=== PATIENT | female | born 1940 | race Hispanic/Latino ===

== ENCOUNTER 2017-03-21 06:55 | Day surgery (SDC) | payer MEDICARE, BC ==
[2017-03-12 08:26] VITALS: BMI 43.0
[2017-03-21] MEDS ORDERED: Propofol 10 mg/ml Inj (20 ML) ONE ×2 (09:05→09:52)
[2017-03-21] MEDS ORDERED: Methylene Blue 10 mg/ml (1ml) Inj ONE (09:30)
[2017-03-21] MEDS ORDERED: Lactated Ringer's 1,000 ML IV SCH (10:04)
[2017-03-21 10:58] VITALS: BP 132/71; RESP 16; TEMP 97.7
[2017-03-21 10:59] VITALS: PULSE 60; O2SAT 100
== END 2017-03-21 11:30 | disposition home or self-care (01) ==
LOC: ENDO 06:55
PROVIDERS: ATTEND Internal Medicine Gastroenterology
DX: D12.3 Benign neoplasm of transverse colon (principal); K57.30 Diverticulosis of large intestine without perforation or abscess without bleeding; K64.8 Other hemorrhoids; J44.9 Chronic obstructive pulmonary disease, unspecified; E11.9 Type 2 diabetes mellitus without complications; I10 Essential (primary) hypertension; E78.5 Hyperlipidemia, unspecified; Z88.0 Allergy status to penicillin; E78.00 Pure hypercholesterolemia, unspecified; F41.9 Anxiety disorder, unspecified; Z90.49 Acquired absence of other specified parts of digestive tract; Z96.653 Presence of artificial knee joint, bilateral; Z87.891 Personal history of nicotine dependence; E66.9 Obesity, unspecified; Z68.41 Body mass index [BMI] 40.0-44.9, adult; Z80.0 Family history of malignant neoplasm of digestive organs; M19.90 Unspecified osteoarthritis, unspecified site
CPT/HCPCS: 45381; 45385; 88305; J2001; J2704; J7120; Q9968